=== PATIENT | male | born 1960 | race Hispanic/Latino ===

== ENCOUNTER 2018-10-23 10:11 | Emergency (ER) | payer OTHER ==
[2018-10-23] MEDS ORDERED: BENZONATATE 100 MG CAPSULE PO ONE (10:19)
[2018-10-23] MEDS ORDERED: GUAIFENESIN-DM 200/20 MG 10 ML ONE (10:19)
== END 2018-10-23 11:10 | disposition home or self-care (01) ==
LOC: EDH 10:11
DX: I10 Essential (primary) hypertension (principal); R05 Cough; R60.0 Localized edema
CPT/HCPCS: 71046